=== PATIENT | male | born 1990 | race Two or more races ===

== ENCOUNTER 2024-04-04 07:40 | Day surgery (SDC) | payer MEDICAID, SELFPAY ==
[2024-04-03 12:49] VITALS: BMI 28.9
[2024-04-04] VITALS (10 sets, daily range): BP systolic 114–132; BP diastolic 71–92; PULSE 65–94; RESP 17–22; TEMP 36.2–36.7; O2SAT 92–100; BMI 28.0
[2024-04-04] MEDS: DiphenhydrAMINE INJ 50 MG/ML VIAL 25 MG IV (08:43)
[2024-04-04] MEDS: fentaNYL CIT INJ 50 mCg/ML AMP 2ML (ASD USE ONLY) IV (08:49)
[2024-04-04] MEDS: MIDAZOLAM INJ 1 MG/ML VIAL 2 ML (ASD USE ONLY) 2 MG IV (08:51)
[2024-04-04] MEDS: SIMETHICONE 40 MG/0.6 ML ORAL SYRINGE PO (10:30)
--- NOTE | 2024-04-04 10:53 | SUR.PHASEII ---
t 0909: Pt received in [place] via gurney. Pt sleepy. Easily aroused with eye opening then drifts back to sleep. Resp even, unlabored. VS stable. No c/o pain, discomfort. 0940: Pt more awake, alert. Sitting up tolerating po fluids with no difficulty swallowing and no n/v. 0945: Pt fully awake, oriented x3. Pt assisted to restroom. Ambulation steady. 0952: Pt dressed and in transport chair. Unable to get in touch with person providing transportation. 1030: Pt has c/o abdominal pain. Rates pain level 3-4. Received order for Simethicone po which was given at this time. 1038: Pt states some relief. Transportation available. Pt and partner stated understanding of discharge instructions. Pt discharged from [facility] in stable condition.
== END 2024-04-04 10:38 | disposition home or self-care (01) ==
PROVIDERS: PCP Physician Assistant; Referring Provider Surgery; Visit Provider Surgery
PROC: 0DBE8ZX Excision of Large Intestine, Via Natural or Artificial Opening Endoscopic, Diagnostic (ICD-10-PCS; CPT 45380; principal; 2024-04-04 08:30)
DX: D12.5 Benign neoplasm of sigmoid colon (principal); K63.89 Other specified diseases of intestine; K64.8 Other hemorrhoids; K57.30 Diverticulosis of large intestine without perforation or abscess without bleeding
CPT/HCPCS: 45380; A4649; J1200; J2250; J3010; A9270

== ENCOUNTER 2024-04-10 15:44 | Outpatient (AMB) | payer MEDICAID, SELFPAY ==
[2024-04-10 16:00] VITALS: BP 137/82; PULSE 80; RESP 19; TEMP 36.9; O2SAT 97; BMI 28.4
--- NOTE | 2024-04-10 16:00 | GSCOFFNT_ITS ---
Vital Signs - [facility] 04/10/24 16:00 Height 1.75 m Height Method Stated Weight 87.288 kg Weight Measurement Method Standing Scale BMI 28.4 BP 137/82 H Blood Pressure Source Automatic Cuff Blood Pressure Location Right Upper Arm Position Sitting Respiration 19 Pulse 80 Pulse Source Monitor Temp 98.4 F Temp Source Temporal Artery Scan Pulse Oximetry (%) 97 Oxygen Delivery Method Room Air Med/Allergies Allergies & Medications Allergies No Known Allergies Allergy (Verified 04/10/24 16:02) Medication Reconciliation albuterol sulfate 90 mcg/actuation aerosol inhaler 1 puff inhalation QPM PRN Cough 01/19/24 [History Confirmed 04/10/24] MA Intake Visit Data Collection New Patient or Established: Established Patient (seen at [facility] within 3 years) Pain Present Currently: No Pain scale:: 0 Pain Scale Used: Tor[place]/[employer] Supervisor Required: No PCP or OBGYN visit in last 3 months: Yes Do You Feel Safe at Home: Yes Smoking Status Smoking Status: Light (< 1 pack/day) Cessation Counseling Provided: ARABELLA was advised that quitting smoking is the single most important factor to protect the health of themselves and their family. Discussed the benefits of quitting smoking with patient. Encouraged patient to quit smoking and provided Cessation assistance materials and resources. Tobacco Use: Cigarette Years smoked: 5 Are you interested in quitting?: Yes Would you like additional Smoking Cessation Counseling?: Yes Immunization / Flu Flu Vaccine in the Last 12 Months: No Flu Vaccine Exclusion Criteria: No Exclusion Criteria Past Medical History Past Medical History NEUROLOGIC: Negative Neurological Disorders or Seizures CARDIAC: Negative Cardiac Disorders or Congestive Heart Failure RESPIRATORY: Positive Asthma (MILD..INHALER PRN); Negative Chronic Obstructive Pulmonary Disease (COPD) GASTROINTESTINAL: Positive Pancreatitis and Diverticulitis; Negative Gastrointestinal Disorders GENITOURINARY: Negative Genitourinary Disorders or Renal Disease ENDOCRINE: Negative Endocrine Disorders, Diabetes Mellitus Type 1 or Diabetes Mellitus Type 2 HEMATOLOGIC: Negative Blood Disorders, Anemia or Sickle Cell Disease OTHER HISTORY: Negative Autoimmune Disease, Blood Transfusions, Blood Transfusion Reaction, Anesthesia Reactions, Organ Transplant, MRSA, Chicken Pox, Measles, Mumps, Clostridium Difficile or Cancer Family History FAMILY HISTORY: Negative Family Psychiatric Problems, Family Respiratory Disorders, Family Cardiac Disorders, Family Gastrointestinal Problems, Family Cancer, Family Surgery or Family Anesthesia Reaction Surgical History SURGICAL: Negative Organ Transplant Social History SMOKING STATUS: Smoking status: Light (< 1 pack/day) ALCOHOL: Alcohol Intake: Former ALCOHOL FREQUENCY: Alcohol Intake Frequency: A Few Times a Week HOUSING: Housing: House LIVES WITH: Lives With: Significant Other HPI HPI Narrative 33M status post diagnostic colonoscopy due to history of diverticulitis here for results. Patient reports feeling well overall, he states he had mild pain for the first 2 days after colonoscopy but is feeling well now. He is eating well, having regular bowel movements, but no pain, no concerns regarding his bowel movements and no urinary difficulty ROS Review of Systems Systems Reviewed: All systems reviewed, normal except as documented Objective/Exam General General Appearance: alert, cooperative and well groomed Resp Respiratory exam: Absent respiratory distress Results Colonoscopy report reviewed Pathology reviewed showing inflammatory polyp and tubular adenoma Assessment & Plan Diagnosis / Problem List (1) Diverticulitis: Status: Acute (2) Encounter to discuss colonoscopy results: Status: Acute Assessment & Plan: 33M with history of diverticulitis now status post colonoscopy which showed an area of inflammation of the sigmoid colon, the small amount of pus as well as a tubular adenoma which was removed. This patient is feeling very well right now with no pain, no concerns regarding his bowel movements I advised that surgery is not necessary, however I strongly encouraged him to reach out if symptoms recur or if he has any concerns or questions. Otherwise he should have his next colonoscopy in 7 years Office Procedures GNS Level of Care Nursing/Assessment Patient Status: Established Patient Nursing Assessment/Reassesment: Medication Reconciliation, Update PMH in EMR and Vital Signs Coordination of Care: Complex Care/Chronic Disease 5 or more, Education Complex Pt/Fam, Consent,records obtained, informed consent, Results/Orders obtained and Staff clarify orders Established Patient Charge Established Patient Point Assignment: 105 Established Patient Point Charge: EP Level 3 (80-115) Patient Portal Questionaires Social History Living Situation History Housing: House Tobacco History Smoking Status: Light (< 1 pack/day) Alcohol History Alcohol Intake: Former Alcohol Intake Frequency: A Few Times a Week Alcohol Intake Frequency Other:: Pt stated he drinks alcohol every weekend. Domestic Abuse History Do You Feel Safe at Home: Yes Review of Systems Report any current symptoms Only answer those that you have currently: Past Medical History Past Medical History Have you ever been diagnosed with any of the following: Neurological Problems Seizures: No Cardiology Problems Congestive Heart Failure: No Respiratory Problems Chronic Obstructive Pulmonary Disease (COPD): No Asthma: Yes (MILD..INHALER PRN) Stomache/Intestinal Problems Pancreatitis: Yes Diverticulitis: Yes Genital/Urinary Problems Renal Disease: No Endocrine Problems Diabetes Mellitus Type 1: No Diabetes Mellitus Type 2: No Blood Problems Anemia: No Sickle Cell Disease: No Other Problems Autoimmune Disease: No Blood Transfusions: No Blood Transfusion Reaction: No Anesthesia Reactions: No Organ Transplant: No MRSA: No Chicken Pox: No Measles: No Mumps: No Clostridium Difficile: No Cancer: No
== END 2024-04-10 16:00 | disposition home or self-care (01) ==
PROVIDERS: Supervising Provider Surgery; Visit Provider Surgery
DX: Z71.2 Person consulting for explanation of examination or test findings (principal); K57.92 Diverticulitis of intestine, part unspecified, without perforation or abscess without bleeding; D12.6 Benign neoplasm of colon, unspecified
CPT/HCPCS: 99213; G0463